=== PATIENT | male | born 1995 | race Caucasian/White ===

== ENCOUNTER 2019-02-04 17:19 | Emergency (ER) | payer MEDICAID ==
[~2019-02-04] VITALS: Ht 167.6 cm; Wt 81.6 kg
[2019-02-04 17:32] VITALS: Ht 167.6 cm; Wt 81.6 kg
[2019-02-04 18:33] VITALS: BP 120/64
== END 2019-02-04 18:33 | disposition home or self-care (01) ==
LOC: ED 17:19
DX: S93.402A Sprain of unspecified ligament of left ankle, initial encounter (principal); J45.909 Unspecified asthma, uncomplicated; X50.1XXA Overexertion from prolonged static or awkward postures, initial encounter; Y93.41 Activity, dancing; Y92.89 Other specified places as the place of occurrence of the external cause; Y99.8 Other external cause status